=== PATIENT | male | born 1985 | race Hispanic/Latino ===

== ENCOUNTER 2020-07-15 04:41 | Emergency (ER) | payer SELFPAY ==
[~2020-07-15] VITALS: Ht 170.2 cm; Wt 109.1 kg
[2020-07-15] MEDS ORDERED: ALBUTEROL SUL0.083 % IN ×2 (04:57→06:23)
[2020-07-15 07:05] VITALS: BP 130/78
== END 2020-07-15 07:05 | disposition home or self-care (01) | DRG 203 ==
LOC: ED 04:41
DX: J45.901 Unspecified asthma with (acute) exacerbation (principal)